=== PATIENT | female | born 1985 | race African-American/Black ===

== ENCOUNTER 2017-09-06 06:50 | Day surgery (SDC) | payer MEDICAID ==
[2017-09-05 15:29] LABS: BASOPHILS 0.1 % (0-2); EOSINOPHILS 0.5 % (0-7); HEMATOCRIT 33.3 % (36.0-48.0); HEMOGLOBIN 10.7 g/dL (12-16); IMMATURE GRANULOCYTES 0.2 % (0-5); LYMPHOCYTES 27.3 % (15-50); MCH 28.2 pg (26.0-34.0); MCHC 32.1 g/dL (31.0-37.0); MCV 87.6 fL (80.0-100.0); MONOCYTES 7.1 % (2-11); NEUTROPHILS 64.8 % (40-80); PLATELET COUNT 326 10x3/uL (130-400); RDW 13.1 % (11.5-14.5); WBC 11.9 10x3/uL (4.8-10.8)
[2017-09-06] VITALS (9 sets, daily range): BP systolic 114–127; BP diastolic 65–86; BMI 30.1
--- NOTE | ~2017-09-06 | OP ---
PATIENT NAME: TATO LEIVA MEDICAL RECORD: [id number] :87 LOCATION:[facility] ADMISSION DATE: SURGEON: KELVIN DURAN MD DATE OF OPERATION: 09/06/2017 PREOPERATIVE DIAGNOSES: 1. Dysmenorrhea. 2. Dysfunctional uterine bleeding. POSTOPERATIVE DIAGNOSES: 1. Dysmenorrhea. 2. Dysfunctional uterine bleeding. 3. Likely adenomyosis. PROCEDURES: 1. Diagnostic laparoscopy. 2. Laparoscopic subtotal hysterectomy with minilaparotomy. SURGEON: Kelvin Duran MD ANESTHESIOLOGIST: Yosef Platt MD ANESTHESIA: General. FINDINGS: Uterus is enlarged. Tubes were unremarkable and both right and left ovaries unremarkable. SPECIMENS REMOVED: Uterus without cervix and both tubes. SPECIMEN DISPOSITION: Pathology. ESTIMATED BLOOD LOSS: Less than or equal 100 cc. FLUIDS: 1600 cc of lactated Ringer's. URINE OUTPUT: 225 mL of clear urine. COMPLICATIONS: None. DRAINS: Moran to gravity discontinued in the PACU. INDICATIONS: The patient is a 32-year-old female with a history of painful heavy periods. The patient is consented for diagnostic laparoscopy and subtotal hysterectomy. The patient understands morcellating device was not available to me today and wishes to proceed with this surgery and with the plan for removal of the uterus through a minilaparotomy incision. DESCRIPTION OF PROCEDURE: After informed consent was assured, the patient was taken to the operating room, where anesthetic is obtained. A timeout was observed. Antibiotics have been received. The incision is made at the umbilicus to accommodate a 5-mm trocar which was inserted and pneumoperitoneum developed. Accessory ports were placed in the right and left lower quadrants. Through the left hand port, a grasper was inserted. The right tube was elevated and using the P-K technology coagulation cutter, the tissues is compressed, coagulated, and . This was continued down over the uteroovarian OPERATIVE REPORT [id number] TATO LEIVA ligament and round ligaments and then the anterior leaf of the broad ligament is dissected with an MELISSA Harmonic scalpel. This dissection was carried down to the bladder flap. The bladder flap was mobilized and dissection continued posteriorly. The vessels of the right side are now identified, compressed, coagulated, and at the level of the internal os. Attention was now directed to the patient's left side. From the right, a grasper was used and the tube is elevated in similar fashion. Tissue was freed using coagulation cutter and again the dissection was carried over the uteroovarian and round ligaments. The broad ligament was now dissected anteriorly and posteriorly using the MELISSA Harmonic scalpel. The vessels on the left side were visualized, compressed, coagulated, and . Dissection of the uterus from the cervix began from the left. This was carried approximately long term across the completion of the dissections from the right. Upon removal of the uterus from the cervical stump, a mini laparotomy was performed. The incisions to place 2 fingerbreadths above the symphysis in the midline. This was performed with the scalpel and carried down to the underlying layer of the fascia, which was opened in the midline and extended laterally. Rectus bellies were . Peritoneum was entered and the uterus removed. Fascia was closed with 0 Vicryl stitch. A 3-0 Monocryl on a Antonio needle was used to reapproximate the skin edges of the minilaparotomy. Pneumoperitoneum was reestablished and the pelvis irrigated. Adequate hemostasis was noted throughout the surgical field. The accessory trocars were removed and then the primary trocar removed after release of the pneumoperitoneum. All sites were closed with 4-0 Monocryl on a PS3 needle. Dermabond applied at all incision sites. Sponge, lap, and needle counts correct times 2 and the patient went to the recovery area in stable condition. TRANSINT:[id number] Voice Confirmation ID: [id number] DOCUMENT ID: [id number] KELVIN DURAN MD at 1251 CC: [id number] DICTATION DATE: 09/06/17 1223 DISPOSAL WORKER: 09/06/17 1317 [facility] 09/07/17 [facility] [address] [id number]
[2017-09-06 08:55] LABS: HCG SERUM NEGATIVE (NEGATIVE)
[2017-09-06] MEDS ORDERED: IBUPROFEN800 MG PO (18:55)
[2017-09-06] MEDS ORDERED: PERCOCET 7.5/321 TAB PO (18:55)
[2017-09-07 01:42] VITALS: BP 108/57
[2017-09-07 05:54] VITALS: BP 104/57
[2017-09-07 07:40] VITALS: BP 115/58
== END 2017-09-07 08:30 | disposition home or self-care (01) ==
LOC: D.OPS 06:50 → D.LD 06:50 → D.PAN 08:10 → D.OPS 08:10 → D.PAN 09:00 → D.OPS 09:15 → D.LD 12:52 → D.OPS 09-07 08:30
PROVIDERS: Anesthesiology; Obstetrics & Gynecology
DX: N94.6 Dysmenorrhea, unspecified (principal); N93.8 Other specified abnormal uterine and vaginal bleeding; K21.9 Gastro-esophageal reflux disease without esophagitis; Z01.812 Encounter for preprocedural laboratory examination